=== PATIENT | female | born 1930 | race Caucasian/White ===

== ENCOUNTER → 2017-10-08 | Outpatient (REF) | payer MEDICARE ==
[2017-10-08 12:28] LABS: CARBOXYHEMOGLOBIN 1.8 % (0.0-1.5)
== END ==
LOC: M LAB REF 12:17
DX: T58.8X1A Toxic effect of carbon monoxide from other source, accidental (unintentional), initial encounter (principal); X58.XXXA Exposure to other specified factors, initial encounter; Y92.9 Unspecified place or not applicable
CPT/HCPCS: 82375

== ENCOUNTER → 2019-04-04 | Outpatient (CLI) | payer MEDICARE ==
--- NOTE | 2019-04-04 16:04 | REP ---
RIGHT ANKLE, FOUR VIEWS: HISTORY: Pain. A faint linear lucency is present in the distal fibula consistent with a nondisplaced fracture. There is no dislocation. The joint space is normal in appearance. An osteophyte is present on the inferior calcaneus. Soft tissue swelling is present. IMPRESSION:Nondisplaced fracture of the distal fibula. Electronically Signed by Clay Samuels MD 04/04/2019 04:12 P
--- NOTE | 2019-04-04 16:39 | REP ---
RIGHT FOOT, FOUR VIEWS: HISTORY: Pain. There is no acute fracture or dislocation. There is narrowing of the 1st and 2nd metatarsal phalangeal joint spaces with associated osteophyte formation. The remaining joint spaces are normal in appearance. An osteophyte is present on the inferior calcaneus. IMPRESSION: Degenerative change as described above. Electronically Signed by Clay Samuels MD 04/04/2019 04:44 P
== END ==
LOC: M WUC 14:07
PROVIDERS: ATTEND Nurse Practitioner Family
DX: S82.831A Other fracture of upper and lower end of right fibula, initial encounter for closed fracture (principal); X58.XXXA Exposure to other specified factors, initial encounter; Y92.89 Other specified places as the place of occurrence of the external cause; M25.774 Osteophyte, right foot

== ENCOUNTER → 2019-06-27 | Outpatient (CLI) | payer MEDICARE ==
[2019-06-27 16:45] LABS: ALBUMIN 3.6 GM/DL (3.2-5.2); BILIRUBIN,TOTAL 1.4 MG/DL (0.2-1.0); CALCIUM LEVEL 9.8 MG/DL (8.8-10.2); CREATININE FOR GFR 1.26 MG/DL (0.55-1.30); GLOMERULAR FILTRATION RATE 42.8 (>32); INR 2.39; POTASSIUM SERUM 3.8 MEQ/L (3.5-5.1); PROTHROMBIN TIME 25.9 SECONDS (11.8-14.0); TOTAL PROTEIN 6.7 GM/DL (6.4-8.2)
[2019-06-27 16:55] LABS: BASO % 0.5 % (0.0-1.0); EOS # 0.2 10^3/uL (0.0-0.5); HEMATOCRIT 41.8 % (36.0-47.0); HEMOGLOBIN 13.4 g/dl (12.0-15.5); LYMPH # 1.3 10^3/uL (1.5-5.0); LYMPH % 16.1 % (24.0-44.0); MEAN CORPUSCULAR HEMOGLOBIN 30.4 pg (27.0-33.0); MEAN CORPUSCULAR HGB CONC 32.1 g/dl (32.0-36.5); MEAN CORPUSCULAR VOLUME 94.8 fl (80.0-96.0); MONO # 0.8 10^3/uL (0.0-0.8); MONO % 10.1 % (0.0-5.0); NEUTROPHILS # 5.6 10^3/uL (1.5-8.5); NEUTROPHILS % 69.9 % (36.0-66.0); PLATELET COUNT, AUTOMATED 211 10^3/uL (150-450); RED BLOOD COUNT 4.41 10^6/uL (4.00-5.40); WHITE BLOOD COUNT 7.9 10^3/uL (4.0-10.0)
== END ==
LOC: M WUC 12:23
PROVIDERS: ATTEND Nurse Practitioner Family
DX: R19.7 Diarrhea, unspecified (principal); K64.9 Unspecified hemorrhoids

== ENCOUNTER → 2019-06-28 | Outpatient (REF) | payer MEDICARE | LOC: M LAB REF 11:40 | PROVIDERS: ATTEND Nurse Practitioner Family | DX: K64.9 Unspecified hemorrhoids (principal) ==

== ENCOUNTER → 2019-09-06 | Outpatient (CLI) | payer MEDICARE ==
--- NOTE | 2019-09-06 14:25 | REPMRS ---
Patient History The patient states she has not had a clinical breast exam in over a year. Patient is postmenopausal. Family history of breast cancer in paternal aunt. Digital Woman Screen Mammo: September 06, 2019 - Exam #: [id number] Bilateral CC and MLO view(s) were taken. Technologists: Lidia Roman, Technologist; Gita España, RT No prior studies available for comparison. FINDINGS: There are scattered fibroglandular densities. There is no evidence of dominant mass, architectural distortion, or grouped microcalcification typical of malignancy. 3-D tomosynthesis shows no additional findings. Assessment: BI-RADS/ACR category 1 mammogram. Negative Mammogram. Recommendation Routine screening mammogram of both breasts in 1 year (for women over age 40). This mammogram was interpreted with the aid of an FDA-approved computer-aided dectection system. Electronically Signed By: Taz Ramos MD 09/06/19 [id number]
== END ==
LOC: M WHC 12:47
PROVIDERS: ATTEND Family Medicine
DX: Z12.31 Encounter for screening mammogram for malignant neoplasm of breast (principal); Z80.3 Family history of malignant neoplasm of breast

== ENCOUNTER → 2020-01-16 | Outpatient (CLI) | payer MEDICARE | LOC: M LABSMTC 12:37 | PROVIDERS: ATTEND Family Medicine | DX: Z03.818 Encounter for observation for suspected exposure to other biological agents ruled out (principal); Z11.59 Encounter for screening for other viral diseases ==

== ENCOUNTER → 2020-04-02 | Emergency (ER) | payer MEDICARE ==
[~2020-04-02] MED LIST: FUROSEMIDE 40MG/4ML VIAL (J1940) ONE
[2020-05-24 21:41] LABS: BASO % 0.4 % (0.0-1.0); EOS # 0.2 10^3/uL (0.0-0.5); EOS % 2.6 % (0.0-3.0); HEMATOCRIT 40.5 % (36.0-47.0); HEMOGLOBIN 12.9 g/dl (12.0-15.5); INR 1.6; LYMPH % 16.7 % (24.0-44.0); MEAN CORPUSCULAR HGB CONC 31.9 g/dl (32.0-36.5); MEAN CORPUSCULAR VOLUME 94.2 fl (80.0-96.0); MONO # 0.6 10^3/uL (0.0-0.8); NEUTROPHILS % 69.9 % (36.0-66.0); PLATELET COUNT, AUTOMATED 151 10^3/uL (150-450); PROTHROMBIN TIME 19.4 SECONDS (12.5-14.3); WHITE BLOOD COUNT 5.7 10^3/uL (4.0-10.0)
[2020-05-24 21:42] LABS: PARTIAL THROMBOPLASTIN TIME 47.3 SECONDS (24.2-38.5)
[2020-06-16 12:08] LABS: ALT/SGPT 50 U/L (12-78); BILIRUBIN,DIRECT 0.5 MG/DL (0.0-0.2); BILIRUBIN,TOTAL 1.3 MG/DL (0.2-1.0); BLOOD UREA NITROGEN 25 MG/DL (7-18); CALCIUM LEVEL 10.4 MG/DL (8.8-10.2); CARBON DIOXIDE LEVEL 31 MEQ/L (21-32); CHLORIDE LEVEL 105 MEQ/L (98-107); CK-MB VALUE MASS 1.4 NG/ML (<3.6); CPK CREATINE PHOSPHOKINASE 80 U/L (26-192); CREATININE FOR GFR 1.09 MG/DL (0.55-1.30); GLOMERULAR FILTRATION RATE 50.4 (>32); GLUCOSE, FASTING 87 MG/DL (70-100); MAGNESIUM LEVEL 1.8 MG/DL (1.8-2.4); MB/CK RELATIVE INDEX 1.75 (< OR =4); NT-PRO BNP 2561 PG/ML (<450); POTASSIUM SERUM 3.8 MEQ/L (3.5-5.1); SODIUM LEVEL 139 MEQ/L (136-145); TOTAL PROTEIN 7.2 GM/DL (6.4-8.2); TROPONIN I < 0.02 NG/ML (< 0.10)
== END | disposition home or self-care (01) ==
LOC: M ED 16:40
DX: I50.9 Heart failure, unspecified (principal); R60.9 Edema, unspecified; I48.91 Unspecified atrial fibrillation; I11.0 Hypertensive heart disease with heart failure; E03.9 Hypothyroidism, unspecified; Z88.2 Allergy status to sulfonamides; J30.2 Other seasonal allergic rhinitis; Z79.899 Other long term (current) drug therapy
CPT/HCPCS: 71046; 80048; 80076; 82550; 82553; 83605; 83735; 83880; 84484; 85025; 85610; 85730; 87040; 96374; 99284; J1940

== ENCOUNTER → 2020-09-24 | Outpatient (CLI) | payer MEDICARE ==
[2020-09-24 15:29] LABS: MEAN CORPUSCULAR HEMOGLOBIN 29.8 pg (27.0-33.0); MEAN CORPUSCULAR HGB CONC 31.8 g/dl (32.0-36.5); MEAN CORPUSCULAR VOLUME 93.6 fl (80.0-96.0); PLATELET COUNT, AUTOMATED 191 10^3/uL (150-450); WHITE BLOOD COUNT 6.1 10^3/uL (4.0-10.0)
[2020-09-24 15:55] LABS: CALCIUM LEVEL 10.6 MG/DL (8.8-10.2); CREATININE FOR GFR 1.26 MG/DL (0.55-1.30); GLOMERULAR FILTRATION RATE 42.7 (>32); MAGNESIUM LEVEL 1.9 MG/DL (1.8-2.4); POTASSIUM SERUM 3.4 MEQ/L (3.5-5.1)
== END ==
LOC: M PLALAB 12:58
PROVIDERS: ATTEND Physician Assistant
DX: I50.32 Chronic diastolic (congestive) heart failure (principal); I48.21 Permanent atrial fibrillation

== ENCOUNTER → 2021-04-08 | Outpatient (REF) | payer MEDICARE ==
[2021-04-08 18:13] LABS: FOLATE > 24.0 NG/ML; PTH INTACT 68.2 PG/ML (18.5-88.0); VITAMIN B12 LEVEL 1092 PG/ML
== END ==
LOC: M LAB REF 16:57
PROVIDERS: ATTEND Family Medicine
DX: R41.3 Other amnesia (principal); E83.52 Hypercalcemia

== ENCOUNTER → 2021-05-08 | Outpatient (REF) | payer MEDICARE ==
[2021-05-08 13:59] LABS: BACTERIA, URINE AUTO NEGATIVE (NEGATIVE); MUCUS, URINE SMALL (NEGATIVE); RBC, URINE AUTO 0 /HPF (0-3); SQUAMOUS EPITHELIAL CELL UR AU 1 /HPF (0-6); WBC, URINE AUTO 1 /HPF (0-3)
== END ==
LOC: M SMT 12:58
PROVIDERS: ATTEND Specialist
DX: R35.0 Frequency of micturition (principal)
CPT/HCPCS: 51798; 81015; 87086; G0463

== ENCOUNTER → 2021-11-14 | Outpatient (REF) | payer OTHER | LOC: M LAB REF 16:14 | PROVIDERS: ATTEND Family Medicine | DX: E83.52 Hypercalcemia (principal) ==